=== PATIENT | female | born 1980 | race Caucasian/White ===

== ENCOUNTER 2018-08-12 09:23 | Outpatient (CLI) | payer BC ==
--- NOTE | 2018-08-15 11:22 | OP Clinic Progress Note ---
Dear Dr. Maynard: REASON FOR VISIT: Thank you for referring Mrs. Blanc for continued evaluation of sarcoid. This is a 38-year-old white woman who I first met in April of 2015. She apparently developed in 2008 an acute respiratory illness consistent with sarcoid requiring high-dose steroids and methotrexate. Treatment was complicated by iatrogenic Karo's disease, as well as hydrocephalus. She also failed to tolerate subcutaneous methotrexate. She had been sent to me for a positive rheumatoid factor and joint pain. In my evaluation, I confirmed that she had sarcoidosis. I also informed her that I saw no evidence of rheumatoid arthritis and rheumatoid factors can be present in sarcoidosis. She comes in at present for worsening sinus disease, inability to breathe, and her examination apparently revealed extensive inflammatory tissue with adhesions. Her last chest x-ray was in March and apparently showed no changes. She has noted recurrence of a skin rash presently on her knees at areas of old scars. She also has a rash on her left hand which is intensely itchy. PAST MEDICAL HISTORY: 1. Sarcoid. 2. Hypertension. 3. Asthma. 4. Sinusitis. 5. Iatrogenic Orlando's. 6. Hydrocephalus. 7. Two pregnancies and zero miscarriages. 8. Cervical cancer. 9. Hysterectomy. PRESENT MEDICATIONS: 1. Hyzaar 100/25 mg daily. 2. Metoprolol 50 mg daily. 3. Vitamin D. 4. Aspirin. 5. Lipitor. ALLERGIES: She has allergies to amoxicillin and Percocet which causes rashes and blood pressure issues, respectively. SOCIAL HISTORY: The patient does smoke. She is . She does not drink. FAMILY HISTORY: Negative from a rheumatological point of view. REVIEW OF SYSTEMS: Positive for fatigue and weakness, itchy eyes, ringing in the ears, loss of hearing, loss of smell, sore tongue, dry mouth, some joint pain, constipation, felt to be IBS, headaches, memory loss, and anxiety. PHYSICAL EXAMINATION: VITAL SIGNS: T: 98.9, BP: 128/93, P: 82, R: 16. HEENT: Sclerae are anicteric. Conjunctivae are pink. No stomatitis or glossitis. LUNGS: Clear bilaterally with full breath sounds. HEART: Regular rate and rhythm. ABDOMEN: Soft and nontender. VASCULAR: No edema or cyanosis. SKIN: Shows erythematous raised papular lesions and old scars on her knees. Her left hand shows an itchy, dry, irritated rash. IMPRESSION: Sarcoid with multiple organ involvement, definitely lung, skin, and sinuses. I am concerned about her eyes as well and her joints. PLAN: 1. She is going to bring me all of her recent labs and imaging studies. 2. I am re-instituting Imuran 50 mg twice a day and giving her low-dose prednisone 5 mg 3 times a day. 3. I will see her back in 4 weeks. Thank you very much for the opportunity to take care of your patient. Best regards, cc: Dr. Robert VAZQUEZ
== END 2018-08-12 09:25 ==
LOC: RHEU 09:23
PROVIDERS: ATTEND Internal Medicine
DX: D86.0 Sarcoidosis of lung (principal); D86.3 Sarcoidosis of skin; D86.89 Sarcoidosis of other sites
CPT/HCPCS: 99213; 99214

== ENCOUNTER 2018-09-09 14:14 | Outpatient (CLI) | payer BC ==
--- NOTE | 2018-09-13 10:54 | OP Clinic Progress Note ---
REASON FOR VISIT: Polly Blanc returns for follow up of sarcoidosis. She thinks maybe she is slightly improved, but I had to also put her on low-dose prednisone. She is presently on 10 mg of prednisone and has noted that her skin lesions have improved. I also re-instituted Imuran 50 mg twice a day and she has had no ill effects and no fevers, chills, sweats, chest pain, shortness of breath, cough, wheezing, nausea, vomiting, or diarrhea. She still has difficulty breathing because of her sinus disease. She had extensive imaging. MRI of her brain showed no evidence of neurosarcoidosis. CT scan of her chest again showed some hilar fullness, unchanged from 2015. No interstitial disease. CT of her sinuses was also reviewed. She had labs done on August 29. Her calcium was normal at 9. Creatinine normal at 0.7. Hemoglobin was 11.6, white count 14.6. Sedimentation was 35. She continues to have some stiffness in her hands, knees, and feet. PAST MEDICAL HISTORY: 1. Sarcoid. 2. Hypertension. 3. Asthma. 4. Sinusitis. 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 7. Cervical cancer. 8. Hysterectomy. PRESENT MEDICATIONS: 1. Hyzaar 100/25 mg. 2. Metoprolol 50 mg daily. 3. Aspirin. 4. Lipitor. 5. Imuran 50 mg twice a day. 6. Prednisone 10 mg daily. ALLERGIES: 1. Amoxicillin. 2. Percocet. SOCIAL HISTORY: No smoking. No drinking. She is . FAMILY HISTORY: Negative. REVIEW OF SYSTEMS: As above. PHYSICAL EXAMINATION: VITAL SIGNS: P: 83, R: 18, T: 98.4, BP: 140/86. Weight: 215. HEENT: Sclerae are anicteric. Conjunctivae are pink. No stomatitis or glossitis. LUNGS: Clear. HEART: Regular rate and rhythm. ABDOMEN: Soft. VASCULAR: No edema or cyanosis. SKIN: Small rash hyperpigmented on the left knee. Nontender and non-swollen. OTHER STUDIES: CCP-antibody was negative. IMPRESSION: Sarcoid mainly cutaneous and probable joint involvement with no overt signs of neurosarcoid or active pulmonary interstitial sarcoidosis. PLAN: 1. I would like for her to decrease her prednisone to 5 mg a day and continue Imuran. 2. She will check her labs in about 7 weeks. 3. I will see her back in 8 weeks. In the meantime, she is fine to undergo a purposed surgery for her sinus congestion and inflammatory tissue. I would like, if possible, that tissue be sent to pathology at that time. Thank you very much. cc: Dr. Robert VAZQUEZ
== END 2018-09-09 14:19 | disposition home or self-care (01) ==
LOC: RHEU 14:14
PROVIDERS: ATTEND Internal Medicine
DX: D86.89 Sarcoidosis of other sites (principal)
CPT/HCPCS: 99212